=== PATIENT | male | born 1955 | race Caucasian/White ===

== ENCOUNTER 2019-10-31 20:33 | Emergency (ER) | payer BC ==
[~2019-10-31] VITALS: Ht 182.9 cm; Wt 135.2 kg
[2019-10-31 20:42] VITALS: Ht 182.9 cm; Wt 135.2 kg
[2019-10-31 22:32] VITALS: BP 140/72
== END 2019-10-31 22:32 | disposition home or self-care (01) ==
LOC: ED 20:33
DX: T23.202A Burn of second degree of left hand, unspecified site, initial encounter (principal); T23.201A Burn of second degree of right hand, unspecified site, initial encounter; T31.0 Burns involving less than 10% of body surface; I10 Essential (primary) hypertension; X08.8XXA Exposure to other specified smoke, fire and flames, initial encounter; Y93.89 Activity, other specified; Y92.89 Other specified places as the place of occurrence of the external cause; Y99.8 Other external cause status
CPT/HCPCS: J2270; Q0162